=== PATIENT | male | born 1960 | race Caucasian/White ===

== ENCOUNTER 2017-10-26 06:47 | Emergency (ER) | payer SELFPAY ==
--- NOTE | 2017-10-26 10:15 | RAD ---
THREE VIEWS RIGHT HAND: 10/26/2017 HISTORY: Crushing type injury five days ago, involving the fifth finger. FINDINGS: There is a slightly obliquely oriented fracture involving the middle one-third of the proximal phalan x, right small finger. There is apex volar angulation of the fracture fragments. There is deformity involving the distal portion of the right fifth metacarpal, likely related to remote fracture and de formity. No additional fracture is seen, and there is no evidence of a dislocation. IMPRESSION: 1. Mildly angulated fracture involving the middle one-third, proximal phalanx, right small finger. 2. Remote fracture deformity involving the right fifth metacarpal. POS: [facility]
== END 2017-10-26 08:46 | disposition home or self-care (01) ==
LOC: MADERS 06:47
DX: S62.306A Unspecified fracture of fifth metacarpal bone, right hand, initial encounter for closed fracture (principal); S62.616A Displaced fracture of proximal phalanx of right little finger, initial encounter for closed fracture; F17.220 Nicotine dependence, chewing tobacco, uncomplicated; W31.89XA Contact with other specified machinery, initial encounter
CPT/HCPCS: 26605; J2001